=== PATIENT | male | born 1980 | race Caucasian/White ===

== ENCOUNTER 2018-08-01 02:40 | Emergency (ER) | payer BC ==
[~2018-08-01] VITALS: Ht 182.9 cm; Wt 74.8 kg
--- NOTE | 2018-08-01 02:48 | NUR ---
ED Nurse Note: pt came to ed due suddent on set of difficulty breathing and SOB per pt he has a hx of asthma as a child but has not had an asthma attack in 15 years, per pt "this is what it felt like when i had an astham attack before"
[2018-08-01 02:49] VITALS: BP 115/74
--- NOTE | 2018-08-01 02:49 | NUR ---
ED Nurse Note: pt is aox4, pt struggles to complete sentences without losing breath, pt skin warm to touch, no signs of decreased consciousness. pt is able to ambulate with steady gait.
[2018-08-01] MEDS ORDERED: Ipratropium 0.02% Inh Soln 2.5ml UD HHN ONE (03:00)
[2018-08-01] MEDS ORDERED: Albuterol ud Inhalation HHN ONE (03:00)
[2018-08-01] MEDS ORDERED: ALBUTEROL SULF8.5 GM INH (03:59)
[2018-08-01 04:02] VITALS: BP 114/60
--- NOTE | 2018-08-01 04:03 | NUR ---
ER DISCHARGE NOTE: Patient is cleared to be discharged per ERMD, pt is aox4, on room air, with stable vital signs. pt was given dc and prescription instructions, pt was able to verbalize understanding, pt id band removed. pt is able to ambulate with steady gait. pt took all belongings.
--- NOTE | 2018-08-01 05:30 | Emergency Room Report ---
History of Present Illness General Chief Complaint: Asthma Source: Patient Present Illness HPI 38-year-old male presents ED for evaluation. Complaining of shortness of breath and wheezing starting tonight. History of asthma. States that dust may have triggered his asthma. Does not have an inhaler. Denies fevers chills. Denies cough. Denies chest pain. No other aggravating relieving factors. Denies any other associated symptoms Allergies: Coded Allergies: No Known Allergies (Unverified , 08/01/18) Patient History Past Medical History: asthma Past Surgical History: none Pertinent Family History: none Social History: Denies: smoking, alcohol use, drug use Immunizations: UTD Reviewed Nursing Documentation: PMH: Agreed; PSxH: Agreed Nursing Documentation-PMH Past Medical History: No History, Except For Hx Asthma: Yes Review of Systems All Other Systems: negative except mentioned in HPI Physical Exam Vital Signs Date Time Temp Pulse Resp B/P (MAP) Pulse Ox O2 Delivery O2 Flow Rate FiO2 08/01/18 02:41 97.9 101 25 96 Room Air 08/01/18 02:49 115/74 08/01/18 02:59 21 Sp02 EP Interpretation: reviewed, normal General Appearance: no apparent distress, alert, GCS 15, non-toxic Head: normocephalic, atraumatic Eyes: bilateral eye normal inspection, bilateral eye PERRL ENT: hearing grossly normal, normal pharynx, no angioedema, normal voice Neck: full range of motion, supple/symm/no masses Respiratory: chest non-tender, speaking full sentences, wheezing Cardiovascular #1: regular rate, rhythm, no edema Cardiovascular #2: 2+ carotid (R), 2+ carotid (L), 2+ radial (R), 2+ radial (L) , 2+ dorsalis pedis (R), 2+ dorsalis pedis (L) Gastrointestinal: normal bowel sounds, non tender, soft, non-distended, no guarding, no rebound Rectal: deferred Genitourinary: normal inspection, no CVA tenderness Musculoskeletal: back normal, gait/station normal, normal range of motion, non- tender Neurologic: alert, oriented x3, responsive, motor strength/tone normal, sensory intact, speech normal Psychiatric: judgement/insight normal, memory normal, mood/affect normal, no suicidal/homicidal ideation Reflexes: 3+ bicep (R), 3+ bicep (L), 3+ tricep (R), 3+ tricep (L), 3+ knee (R) , 3+ knee (L) Skin: normal color, no rash, warm/dry, well hydrated Lymphatic: no adenopathy Medical Decision Making Diagnostic Impression: Primary Impression: Asthma attack Qualified Codes: J45.901 - Unspecified asthma with (acute) exacerbation ER Course Hospital Course 38-year-old male presents to ED complaining of wheezing Differential diagnoses include: URI, bronchitis, asthma/COPD, pneumonia Clinical course Patient placed on stretcher. After initial history, physical exam reveals a male in no acute distress. Bilateral TM unremarkable. No pharyngeal erythema. No tonsillar exudates. No lymphadenopathy. Mild wheezing noted on exam, no signs of respiratory distress or retractions. Patient given albuterol/atrovent treatment in ED with symptoms improved. Reassurance given Discussed findings with patient. Safe for discharge close outpatient follow- up. We'll provide inhaler prescription Diagnosis - asthma attack Stable and discharged home with prescriptions for albuterol. Instructed to followup with PMD. Return to ED if symptoms recur or worsen Last Vital Signs Date Time Temp Pulse Resp B/P (MAP) Pulse Ox O2 Delivery O2 Flow Rate FiO2 08/01/18 04:02 97.9 74 11 114/60 96 Room Air 08/01/18 03:25 21 Status: improved Disposition: HOME, SELF-CARE Condition: Stable Scripts Albuterol Sulfate* (ALBUTEROL SULFATE MDI*) 8.5 Gm Hfa.aer.ad 2 PUFF INH Q6H, #1 EA 0 Refills Prov: Ad Merrill MD 08/01/18 Patient Instructions: Asthma, Adult Ad Merrill MD August 01, 2018 05:30
== END 2018-08-01 04:02 | disposition home or self-care (01) ==
LOC: EMR 03:32
DX: J45.901 Unspecified asthma with (acute) exacerbation (principal)
CPT/HCPCS: 94640; 94664; 99284